=== PATIENT | female | born 1985 | race Asian ===

== ENCOUNTER 2017-10-18 03:00 | Inpatient (IN) | payer BC, OTHER ==
[2017-10-18] MEDS ORDERED: ELECTROLYTE-148 SOLN 1,000 ML IV SCH ×2 (03:35→08:30)
[2017-10-18] MEDS ORDERED: AMPICILLIN - 2 GM in SODIUM CHLORIDE 100 ML IVPB ONE (03:50)
[2017-10-18] MEDS ORDERED: OXYTOCIN 20 UNITS in 0.9% NS 20 UNIT/1,000 ML INFUS.BAG IV ONE ×2 (04:00→09:56)
[2017-10-18] MEDS ORDERED: LIDOCAINE HCL 1% PRESERVATIVE FREE - 30ML VIAL ONE (04:00)
[2017-10-18 04:21] LABS: BASO % 0.1 % (0-2.0); EOS % 0.4 % (0-4.5); HEMATOCRIT 41.2 % (32.4-45.2); HEMOGLOBIN 13.9 GM/dL (10.7-15.3); LYMPH % 20.7 % (8-40); MCH 28.7 pg (25.7-33.7); MCHC 33.8 g/dl (32.0-36.0); MEAN CELL VOLUME 84.8 fl (80-96); MEAN PLT VOLUME 11.5 fl (7.5-11.1); MONO % 8.1 % (3.8-10.2); NEUT % 70.7 % (42.8-82.8); PLATELET COUNT 92 K/MM3 (134-434); RBC 4.86 M/mm3 (3.60-5.2); RDW 14.8 % (11.6-15.6); WHITE BLOOD COUNT 10.8 K/mm3 (4.0-10.0)
[2017-10-18 04:29] VITALS: BMI 29.9
[2017-10-18 04:30] LABS: INR 0.87 (0.83-1.09); PROTHROMBIN TIME (PATIENT) 9.8 SEC (9.7-13.0)
[2017-10-18 04:33] LABS: ACTIVATED PTT 26.9 SECONDS (25.2-36.5)
[2017-10-18 04:41] LABS: ANION GAP 11 MMOL/L (8-16); BLOOD UREA NITROGEN 11 mg/dL (7-18); CALCIUM 8.9 mg/dL (8.5-10.1); CHLORIDE 105 mmol/L (98-107); CO2 22 mmol/L (21-32); CREATININE 0.5 mg/dL (0.55-1.02); GLUCOSE,RANDOM 100 mg/dL (74-106); POTASSIUM 4.3 mmol/L (3.5-5.1); SODIUM 138 mmol/L (136-145)
[2017-10-18] MEDS ORDERED: FENTANYL/BUPIVACAINE/NS/PF - PCEA - 50 ML DISP.SYRIN EP ONE (05:03)
[2017-10-18] MEDS ORDERED: BUPIVACAINE 0.75% IN DEXTROSE/PF 2ML AMPULE NR ONE (05:17)
--- NOTE | 2017-10-18 06:17 | HP ---
Past Medical History - Primary Care Physician PCP:: Celena Mayorga - Admission Chief Complaint: 32yo P1 @ 38.4wks with ctx, no VB, no LOF, +FM History of Present Illness: 1. Rh negative - s/p RhoGam @ 28wks 2. Late transfer of care from [place] 3. GBS neg - Ampicilln for prophylaxis History Source: Patient, Significant Other, Medical Record Limitations to Obtaining History: No Limitations - Past Medical History ...: 2 ...Para: 1 ( 7.11lb) ...Term: 1 ... Weeks Gestation by Dates: 38.4 ...EDC by Dates: 10/28/17 - Past Surgical History Past Surgical History: Yes: None Hx Myomectomy: No Hx Transabdominal Cerclage: No - Smoking History Smoking history: Never smoked Have you smoked in the past 12 months: No - Alcohol/Substance Use Hx Alcohol Use: No History of Substance Use: reports: None - Social History ADL: Independent History of Recent Travel: No Home Medications - Allergies Allergies/Adverse Reactions: Allergies Allergy/AdvReac Type Severity Reaction Status Date / Time No Known Allergies Allergy Verified 11/11/15 09:32 - Home Medications Home Medications: Ambulatory Orders Vit/Iron Fum/Folic AC [ Tablet] 1 each PO DAILY 11/11/15 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 - Maternity Vital Signs: Vital Signs Temperature 97.6 F 10/18/17 03:35 Pulse Rate 59 L 10/18/17 03:35 Respiratory Rate 22 10/18/17 03:35 Blood Pressure 141/72 10/18/17 03:35 O2 Sat by Pulse Oximetry (%) Constitutional: Yes: Well Nourished, No Distress, Calm Eyes: Yes: WNL, Conjunctiva Clear, EOM Intact HENT: Yes: WNL, Atraumatic, Normocephalic Neck: Yes: WNL, Supple, Trachea Midline Cardiovascular: Yes: WNL, Regular Rate and Rhythm Lungs: Clear to auscultation Breast(s): Yes: WNL - Abdominal Exam/OB Fundal Height: 39 (EFW 8lb) Number of Fetuses: Single Presentation: Vertex Contractions: Yes Regularity: Regular Intensity: Moderate Monitor Mode: External Heart Rate (range): 150 Heart Rate Location: Midline Category: I Accelerations: Uniform Decelerations: None - Vaginal Exam/OB Vaginal Bleediing: No Speculum Exam: No Dilatation (cm): FD Effacement (%): 100 Amniotic Membrane Status: Bulging Presentation: Vertex/Position Station: -1 - 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 Musculoskeletal: Yes: WNL Extremities: Yes: WNL Integumentary: Yes: WNL ...Motor Strength: WNL - Labs Lab Results: CBC, BMP 10/18/17 04:05 10/18/17 04:05 Assessment/Plan 32yo P1 @ 38.3 wks in active labor requesting pain relief Patient informed that she can only have Spinal anesthesia at this point and would not be able to push for 1-2hrs She was offered to push right away patient chose to get pain relief via spinal anesthesia GBS positive Ampicillin administered right away MF Status reassuring will monitor progress of labor
[2017-10-18] MEDS: AMPICILLIN - 1 GM in SODIUM CHLORIDE 100 ML IVPB SCH ×2 (07:25→23:05)
[2017-10-18] MEDS ORDERED: AMPICILLIN SODIUM 1 GM VIAL ONE (07:29)
[2017-10-18] MEDS ORDERED: BISACODYL 10 MG SUPP.RECT RC PRN (08:24)
[2017-10-18] MEDS ORDERED: WITCH HAZEL 50% (TUCKS) 40 PAD/JAR PAD TP PRN (08:24)
[2017-10-18] MEDS ORDERED: IBUPROFEN 600 MG TABLET (FP) PO PRN (08:24)
[2017-10-18] MEDS ORDERED: BENZOCAINE 20% 57 GM BOTTLE TP PRN (08:24)
[2017-10-18] MEDS ORDERED: METHYLERGONOVINE MALEATE 0.2 MG/1 ML AMP IM PRN (08:24)
[2017-10-18] MEDS: ACETAMINOPHEN 325 MG TABLET (FP) PO PRN ×3 (08:27→23:22)
[2017-10-18] MEDS ORDERED: D5W-LR W/ 20 UNITS OXYTOCIN 20 UNIT/1,000 ML INFUS.BAG IV SCH (08:30)
[2017-10-18 08:35] LABS: ARTERIAL BLOOD GAS BASE EXCESS -4.8 meq/l (-2-2)
--- NOTE | 2017-10-18 08:35 | PN ---
Delivery - Delivery Vaginal Delivery: No Problems Type of Anesthesia: Spinal Episiotomy/Laceration: Midline, 1st degree EBL (cc): 450 Delivery, Single - Stages of Labor Date 1st Stage Initiatied: 10/18/17 Time 1st Stage Initiated: 01:00 Date 2nd Stage Initiated: 10/18/17 Time 2nd Stage Initiated: 05:05 Date of Delivery: 10/18/17 Time of Delivery: 08:01 Date Placenta Delivered: 10/18/17 Time Placenta Delivered: 08:06 Placenta: Yes: Spontaneous - Condition of Infant Travel Agency Manager/Test Puller Present: No Gender: Male Weight: 9 lb 9 oz Position: Right, OT - 1 Minute Total Score: 9 5 Minutes Total Score: 9 - Feeding Plan Initial Plan: Exclusive throughout hospitalization Remarks - Remarks Remarks: Uncomplicated head and shoulder delivery, cord x 1 around the shoulder reduced without difficulty
[2017-10-18 08:46] LABS: VENOUS PC02 48.9 mmHg (38-52); VENOUS PH 7.31 (7.32-7.42); VENOUS PO2 29.2 mmHg (28-48)
[2017-10-18 08:49] LABS: ARTERIAL BLD GAS O2 SATURATION 39.4 % (90-98.9); ARTERIAL BLOOD GAS PCO2 73.3 mmHg (35-45); ARTERIAL BLOOD GAS PO2 24.1 mmHg (80-100); ARTERIAL BLOOD GAS pH 7.18 (7.35-7.45)
[2017-10-18] MEDS: PRENATAL VITAMINS W/ FOLIC ACID TABLET (FP) PO SCH (10:44)
[2017-10-18] MEDS: FERROUS SO4 325 MG TABLET (FP) PO SCH ×2 (10:44→18:00)
[2017-10-18] MEDS ORDERED: TUBERCULIN PPD 5 TU/0.1ML SYRINGE (IN PATIENT USE ONLY) ID ONE (12:30)
[2017-10-18] MEDS: BENZOCAINE 28 GM HEMORRHOIDAL OINTMENT TP PRN (20:41)
[2017-10-19 08:22] LABS: BASO % 0.2 % (0-2.0); EOS % 0.5 % (0-4.5); HEMATOCRIT 36.8 % (32.4-45.2); HEMOGLOBIN 12.1 GM/dL (10.7-15.3); LYMPH % 22.8 % (8-40); MCHC 32.9 g/dl (32.0-36.0); MEAN CELL VOLUME 85.4 fl (80-96); MEAN PLT VOLUME 11.8 fl (7.5-11.1); MONO % 6.4 % (3.8-10.2); NEUT % 70.1 % (42.8-82.8); PLATELET COUNT 90 K/MM3 (134-434); RBC 4.31 M/mm3 (3.60-5.2); RDW 15.2 % (11.6-15.6); WHITE BLOOD COUNT 11.1 K/mm3 (4.0-10.0)
[2017-10-19] MEDS: PRENATAL VITAMINS W/ FOLIC ACID TABLET (FP) PO SCH (09:03)
[2017-10-19] MEDS: FERROUS SO4 325 MG TABLET (FP) PO SCH ×2 (09:03→18:36)
[2017-10-19] MEDS ORDERED: DIPHTH,PERTUSS(ACELL),TET 0.5 ML DISP.SYRIN IM ONE (10:00)
--- NOTE | 2017-10-19 10:39 | PN ---
Post Progress Note - Subjective Subjective: No complains, ambulating, Breast feeding Post Day: 1 Type of Delivery: Vital Signs: Vital Signs Temperature 98.2 F 10/19/17 09:00 Pulse Rate 89 10/19/17 09:00 Respiratory Rate 20 10/19/17 09:00 Blood Pressure 125/78 10/19/17 09:00 O2 Sat by Pulse Oximetry (%) 96 10/18/17 09:30 Breast Exam: Yes: Soft Uterus: Yes: Fundus Firm Abdomen/GI: Yes: Abdomen soft Lochia: Yes: Rubra Lochia, amount: Small Extremities: Yes: Calves non-tender Perineum: Yes: Laceration Activity: Ambulating - Labs Labs: CBC WBC 11.1 K/mm3 (4.0-10.0) H 10/19/17 07:45 RBC 4.31 M/mm3 (3.60-5.2) 10/19/17 07:45 Hgb 12.1 GM/dL (10.7-15.3) 10/19/17 07:45 Hct 36.8 % (32.4-45.2) 10/19/17 07:45 MCV 85.4 fl (80-96) 10/19/17 07:45 MCH 28.0 pg (25.7-33.7) 10/19/17 07:45 MCHC 32.9 g/dl (32.0-36.0) 10/19/17 07:45 RDW 15.2 % (11.6-15.6) 10/19/17 07:45 Plt Count 90 K/MM3 (134-434) L 10/19/17 07:45 MPV 11.8 fl (7.5-11.1) H 10/19/17 07:45 Absolute Neuts (auto) 7.8 K/mm3 (1.5-8.0) 10/19/17 07:45 Neutrophils % 70.1 % (42.8-82.8) 10/19/17 07:45 Lymphocytes % 22.8 % (8-40) 10/19/17 07:45 Monocytes % 6.4 % (3.8-10.2) 10/19/17 07:45 Eosinophils % 0.5 % (0-4.5) 10/19/17 07:45 Basophils % 0.2 % (0-2.0) 10/19/17 07:45 Nucleated RBC % 0 % (0-0) 10/19/17 07:45 Assessment/Plan 32yo P2 s/p Doing well VSS, Afebrile Rh negative, received RhoGam Baby boy not for circumcision Plan d/c in am NPV x 6wks RTO 4-6 wks
[2017-10-19] MEDS: BENZOCAINE 28 GM HEMORRHOIDAL OINTMENT TP PRN (21:31)
[2017-10-19] MEDS ORDERED: SENNOSIDES/DOCUSATE COMBO (SENNA PLUS) TABLET (UD) PO PRN (22:00)
[2017-10-20] MEDS: FERROUS SO4 325 MG TABLET (FP) PO SCH (08:02)
[2017-10-20] MEDS: PRENATAL VITAMINS W/ FOLIC ACID TABLET (FP) PO SCH (09:47)
--- NOTE | 2017-10-20 11:04 | DS ---
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-S3B MULTI SENSOR OPERATOR Vital Signs: Vital Signs Temperature 98.8 F 10/19/17 22:00 Pulse Rate 83 10/19/17 22:00 Respiratory Rate 18 10/19/17 22:00 Blood Pressure 119/79 10/19/17 22:00 O2 Sat by Pulse Oximetry (%) 96 10/18/17 09:30 Constitutional: Yes: Well Nourished, No Distress, Calm Eyes: Yes: WNL, Conjunctiva Clear, EOM Intact HENT: Yes: WNL, Atraumatic, Normocephalic Neck: Yes: WNL, Supple, Trachea Midline Cardiovascular: Yes: WNL, Regular Rate and Rhythm Respiratory: Yes: WNL, Regular, CTA Bilaterally Gastrointestinal: Yes: WNL, Normal Bowel Sounds, Soft ...Rectal Exam: Yes: WNL Renal/: Yes: WNL Pelvis: Yes: WNL External Genitalia: Yes: Normal Vaginal Exam: Yes: Normal Cervix: Yes: Normal Uterus: Yes: Normal ....Post : Yes: Uterus firm, Uterus non-tender Breast(s): Yes: WNL Musculoskeletal: Yes: WNL Extremities: Yes: WNL Edema: No Integumentary: Yes: WNL Wound/Incision: Yes: Well Approximated Neurological: Yes: WNL, Alert, Oriented ...Motor Strength: WNL Psychiatric: Yes: WNL, Alert, Oriented Labs: CBC, BMP 10/19/17 07:45 10/18/17 04:05 Delivery - Delivery Vaginal Delivery: No Problems Type of Anesthesia: Spinal Episiotomy/Laceration: Midline, 1st degree EBL (cc): 450 Delivery, Single - Stages of Labor Date 1st Stage Initiatied: 10/18/17 Time 1st Stage Initiated: 01:00 Date 2nd Stage Initiated: 10/18/17 Time 2nd Stage Initiated: 05:05 Date of Delivery: 10/18/17 Time of Delivery: 08:01 Time Placenta Delivered: 08:06 Placenta: Yes: Spontaneous - Condition of Infant Reservationist/Language Translator Present: [place]: Jarrett Carbajal Infant Gender: Male Weight: 9 lb 9 oz Position: Right, OT Total Hours ROM (Hrs/Mins): 2hr/50min - 1 Minute Total Score: 9 5 Minutes Total Score: 9 - Feeding Plan Initial Plan: Exclusive throughout hospitalization Discharge Summary Reason For Visit: LABOR ADMIT Procedures: Principal: Normal vaginal delivery Hospital Course: Unremarkable Condition: Good - Instructions Diet, Activity, Other Instructions: Physical activity Resume your normal everyday activity as tolerated no heavy lifting or exercise until seen by your surgeon. You may walk unlimited cayla of and climb stairs. You may resume driving the car when you feel safe and comfortable behind the wheel. No sexual activity as instructed. Wound care If you have a bandage, leave it on, and keep dry for 48-72 hours. After that time discard the outer bandage. If they are tapes on the skin under the out of bandage leave them in place. They will peel off in the next 7 to 10 days. Do Not Peel them off. You may shower the day after surgery. If there are tapes present on the skin, you may shower over them. Diet There are no dietary restrictions. Eat healthy, high-fiber foods. Drink 6 to 8 glasses of liquid each day. This will assist in keeping your bowels are regular. Pain management You may take Tylenol or acetaminophen or Ibuprofen (for example, Motrin, Advil etc.) from my pain prescription medication is ordered should be taken as prescribed for moderate to severe pain. Call MD for any of the following: Severe pain not relieved by medication Fever of 101 or higher Excessive bleeding or drainage on dressing Inability to urinate Disposition: HOME - Home Medications Comprehensive Discharge Medication List: Ambulatory Orders Vit/Iron Fum/Folic AC [ Tablet] 1 each PO DAILY 11/11/15
[2017-10-20 14:54] VITALS: BP 97/58; PULSE 91; TEMP 97.6
== END 2017-10-20 14:30 | disposition home or self-care (01) | DRG 560 ==
LOC: JDEL 03:00 → JLDR 03:35 → J3W 10:10
PROVIDERS: ADMIT Obstetrics & Gynecology; ATTEND Obstetrics & Gynecology
PROC: 10E0XZZ Delivery of Products of Conception, External Approach (ICD-10-PCS; principal; 2017-10-18)
PROC: 0HQ9XZZ Repair Perineum Skin, External Approach (ICD-10-PCS; 2017-10-18)
PROC: 0W8NXZZ Division of Female Perineum, External Approach (ICD-10-PCS; 2017-10-18)
PROC: 3E0334Z Introduction of Serum, Toxoid and Vaccine into Peripheral Vein, Percutaneous Approach (ICD-10-PCS; 2017-10-18)
DX: O70.0 First degree perineal laceration during delivery (principal); O26.893 Other specified pregnancy related conditions, third trimester; Z67.91 Unspecified blood type, Rh negative; Z3A.38 38 weeks gestation of pregnancy; Z22.330 Carrier of Group B streptococcus; Z37.0 Single live birth
CPT/HCPCS: 36415; 36600; 59025; 59409; 80048; 82803; 85025; 85461; 85610; 85730; 86593; 86850; 86900; 86901; 86999; 87389; 90715

== ENCOUNTER 2019-02-05 16:20 | Inpatient (IN) | payer OTHER ==
[2019-02-05] MEDS ORDERED: AMPICILLIN - 2 GM in SODIUM CHLORIDE 100 ML IVPB ONE (16:30)
[2019-02-05] MEDS ORDERED: ELECTROLYTE-148 SOLN 1,000 ML IV SCH (16:30)
[2019-02-05] MEDS ORDERED: AMPICILLIN SODIUM 2 GM VIAL ONE (16:40)
[2019-02-05 16:50] VITALS: BMI 28.1
[2019-02-05] MEDS ORDERED: OXYTOCIN 20 UNITS in 0.9% NS 20 UNIT/1,000 ML INFUS.BAG IV ONE (17:03)
[2019-02-05] MEDS ORDERED: LIDOCAINE HCL 1% PRESERVATIVE FREE - 30ML VIAL ONE (17:06)
[2019-02-05 17:12] LABS: BASO % 0.1 % (0-2.0); EOS % 0.1 % (0-4.5); LYMPH % 22.3 % (8-40); MCH 28.5 pg (25.7-33.7); MEAN CELL VOLUME 83.8 fl (80-96); MEAN PLT VOLUME 11.4 fl (7.5-11.1); MONO % 8.9 % (3.8-10.2); NEUT % 68.6 % (42.8-82.8); PLATELET COUNT 109 K/MM3 (134-434); RDW 15.8 % (11.6-15.6); WHITE BLOOD COUNT 8.2 K/mm3 (4.0-10.0)
--- NOTE | 2019-02-05 17:44 | HP ---
Past Medical History - Primary Care Physician PCP:: Rey Eldridge - Admission Chief Complaint: 33yo P2 with at EGA 39w0d admitted with spont labor. History of Present Illness: Pt presented to L&D and progressed quickly to . complicated by: GBS pos vaginal cx Mildly decreased platelet count. 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: No: Alzheimer's, CVA, Dementia, Migraine, Multiple Sclerosis, Peripheral Neuropathy, Parkinson's, Seizure, Syncope, TIA, Vertigo, Other Cardiovascular: No: AFIB, Aneurysm, Aortic Insufficiency, Aortic Stenosis, CAD, CHF, Deep Vein Thrombosis, HTN, Hyperlipdemia, [place], Mitral Insufficiency, Mitral Stenosis, Murmur, Pulmonary Hypertension, Other Pulmonary: No: Asthma, Bronchitis, Cancer, COPD, O2 Dependent, Pneumonia, Previously Intubated, Pulmonary Embolus, Pulmonary Fibrosis, Sleep Apnea, Other Gastrointestinal: No: Ascites, Cancer, Constipation, Crohn's Disease, Diverticulitis, Diverticulosis, Esophageal Varices, Gastritis, GERD, GI Bleed, Hemorrhoids, Hiatal Hernia, Inflamatory Bowel Disease, Irritable Bowel Disease, Pancreatitis, Peptic Ulcer Disease, Ulcerative Colitis, Other Hepatobiliary: No: Cirrhosis, Cholelithiasis, Cholecystitis, Choledocholithiasis , Hepatitis A, Hepatitis B, Hepatitis C, Other Renal/: No: Renal Failure, Renal Inusuff, BPH, Cancer, Hematuria, Hemodialysis , Neurogenic Bladder, Renal Calculi, UTI, Other Reproductive: No: Ectopic , Endometriosis, Fibroids, PID, Polycystic Ovary Syndrome, Postmenopausal, Other ...: 3 ...Para: 2 ...Term: 2 ... Weeks Gestation by Dates: 39 ...EDC by Sono: 02/12/19 Heme/Onc: No: Anemia, B12 Deficiency, Bleeding Disorder, Cancer, Current Chemotherapy, Current Radiation Therapy, Hemochromatosis, Hypercoaguable State, Myeloproliferative Synd, Sickle Cell Disease, Sickle Cell Trait, Thrombocytopenia, Other Infectious Disease: No: AIDS, C-Diff, Herpes Zoster, HIV, MRSA, STD's, Tuberculosis, VREF, Other Psych: No: Addictions, Anxiety, Bipolar, Depression, Panic, Psychosis, Schizophrenia, Other Musculoskeletal: No: Bursitis, Chronic low back pain, Hemiparesis, Hemiplegia, Osteoarthritis, Paraplegia, Other Rheumatology: No: Fibromyalgia, Gout, Lupus, Rheumatoid Arthritis, Sarcoidosis, Vasculitis, Other ENT: No: Allergic Rhinitis, Sinusitis, Other Endocrine: No: Camden's Disease, Leon's Disease, Diabetes Insipidus, Diabetes Mellitus, Hyperparathyroidism, Hyperthyroidism, Hypothyroidism, Osteopenia, SIADH, Other Dermatology: No: Basal Cell, Cellulitis, Eczema, Melanoma, Psoriasis, Squamous Cell, Other - Past Surgical History Past Surgical History: Yes: None Hx Myomectomy: No Hx Transabdominal Cerclage: No - Smoking History Smoking history: Never smoked Have you smoked in the past 12 months: No - Alcohol/Substance Use Hx Alcohol Use: No History of Substance Use: reports: None - Social History Usual Living Arrangement: Yes: With Spouse, With Child Do you think of yourself as: Straight/Heterosexual ADL: Independent History of Recent Travel: No Home Medications - Allergies Allergies/Adverse Reactions: Allergies Allergy/AdvReac Type Severity Reaction Status Date / Time No Known Allergies Allergy Verified 02/05/19 16:53 - Home Medications Home Medications: Ambulatory Orders Vit/Iron Fum/Folic AC [ Tablet] 1 each PO DAILY 11/11/15 Family Medical History Family History: Unremarkable Review of Systems - Review of Systems Constitutional: reports: Other (Active labor) Eyes: reports: No Symptoms HENT: reports: No Symptoms Neck: reports: No Symptoms Cardiovascular: reports: No Symptoms Respiratory: reports: No Symptoms Gastrointestinal: reports: No Symptoms Genitourinary: reports: Other (SROM) Breasts: reports: No Symptoms Reported Musculoskeletal: reports: No Symptoms Integumentary: reports: No Symptoms Neurological: reports: No Symptoms Endocrine: reports: No Symptoms Hematology/Lymphatic: reports: No Symptoms Psychiatric: reports: No Symptoms 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 - Maternity Vital Signs: Vital Signs Temperature 98.1 F 02/05/19 16:43 Pulse Rate 90 02/05/19 16:43 Respiratory Rate 20 02/05/19 16:43 Blood Pressure 138/48 L 02/05/19 16:43 O2 Sat by Pulse Oximetry (%) Constitutional: Yes: Well Nourished, Other (active labor and contractions) Eyes: Yes: WNL, Conjunctiva Clear, EOM Intact HENT: Yes: WNL, Atraumatic, Normocephalic Neck: Yes: WNL, Supple, Trachea Midline Cardiovascular: Yes: WNL, Regular Rate and Rhythm Lungs: Clear to auscultation, Normal air movement - Abdominal Exam/OB Fundal Height: 39 Number of Fetuses: Single Presentation: Vertex Contractions: Yes - Vaginal Exam/OB Vaginal Bleediing: No Speculum Exam: No Dilatation (cm): 10 Effacement (%): 100 Amniotic Fluid: Yes: Clear Presentation: Vertex/Position - 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 Musculoskeletal: Yes: WNL Extremities: Yes: WNL Edema: No Integumentary: Yes: WNL Deep Tendon Reflex Grade: Normal +2 ...Motor Strength: WNL Psychiatric: Yes: WNL, Alert, Oriented - Labs Lab Results: CBC, BMP 02/05/19 16:30 Hemorrhage Risk Assessment - Risk Factors Medium Risk Factors: Yes: None High Risk Factors: Yes: None Risk Score: 1 Risk Level: Medium Risk Assessment/Plan 33yo P2 with at EGA 39w0d admitted with spont labor. Pt had SROM on admission and progressed quickly to . A live baby boy was delivered w/o complications over 2nd degree perineal laceration. 9-9 EBL 350ml
[2019-02-05] MEDS ORDERED: OXYTOCIN 20 UNITS in 0.9% NS 20 UNIT/1,000 ML INFUS.BAG IV SCH (17:45)
[2019-02-05] MEDS: ACETAMINOPHEN 325 MG TABLET (FP) PO PRN (17:45)
[2019-02-05] MEDS ORDERED: BISACODYL 10 MG SUPP.RECT RC PRN (17:45)
[2019-02-05] MEDS: IBUPROFEN 600 MG TABLET (FP) PO PRN (17:45)
[2019-02-05] MEDS ORDERED: BENZOCAINE 28 GM HEMORRHOIDAL OINTMENT TP PRN (17:45)
[2019-02-05] MEDS ORDERED: METHYLERGONOVINE MALEATE 0.2 MG/1 ML AMP IM PRN (17:45)
[2019-02-05 17:54] LABS: BLOOD UREA NITROGEN 11.6 mg/dL (7-18); CREATININE 0.7 mg/dL (0.55-1.3); POTASSIUM 4.3 mmol/L (3.5-5.1)
--- NOTE | 2019-02-05 17:56 | PN ---
Delivery - Delivery Vaginal Delivery: No Problems, Spontaneous Type of Anesthesia: Local Episiotomy/Laceration: Midline (Laceration), 2nd degree EBL (cc): 350 Delivery, Single - Stages of Labor Date 1st Stage Initiatied: 02/05/19 Time 1st Stage Initiated: 13:00 Date 2nd Stage Initiated: 02/05/19 Time 2nd Stage Initiated: 17:05 Date of Delivery: 02/05/19 Time of Delivery: 17:15 Time Placenta Delivered: 17:25 Placenta: Yes: Spontaneous, Normal Configuration - Condition of Infant Community Health Nurse/Trim Die Maker Present: No Gender: Male Position: Left, OA Total Hours ROM (Hrs/Mins): 1h15m - 1 Minute Total Score: 9 5 Minutes Total Score: 9 - Feeding Plan Initial Plan: Elected not to breastfeed exclusively throughout hospitalization Benefits of Exclusively reinforced: Yes Remarks - Remarks Remarks: Uncomplicated .
[2019-02-05 18:59] LABS: INR 0.85 (0.83-1.09)
[2019-02-05 19:01] LABS: ACTIVATED PTT 27.8 SECONDS (25.2-36.5)
[2019-02-06] MEDS: ACETAMINOPHEN 325 MG TABLET (FP) PO PRN (00:55)
[2019-02-06] MEDS: IBUPROFEN 600 MG TABLET (FP) PO PRN (00:56)
[2019-02-06] MEDS: BENZOCAINE 20% 57 GM BOTTLE TP PRN (00:57)
[2019-02-06] MEDS: WITCH HAZEL 50% (TUCKS) 40 PAD/JAR PAD TP PRN (00:57)
[2019-02-06 07:21] LABS: BASO % 0.2 % (0-2.0); EOS % 0.4 % (0-4.5); HEMATOCRIT 36.3 % (32.4-45.2); LYMPH % 21.1 % (8-40); MCHC 33.2 g/dl (32.0-36.0); MEAN CELL VOLUME 84.6 fl (80-96); MEAN PLT VOLUME 11.3 fl (7.5-11.1); MONO % 6.9 % (3.8-10.2); NEUT % 71.4 % (42.8-82.8); PLATELET COUNT 99 K/MM3 (134-434); RBC 4.29 M/mm3 (3.60-5.2); RDW 15.8 % (11.6-15.6); WHITE BLOOD COUNT 9.6 K/mm3 (4.0-10.0)
[2019-02-06] MEDS: PRENATAL VITAMINS W/ FOLIC ACID TABLET (FP) PO SCH (10:29)
--- NOTE | 2019-02-06 12:00 | PN ---
Post Progress Note - Subjective Subjective: Patient without acute complaints. Reports tolerating oral intake without nausea or vomiting. Ambulating without dizziness. Denies fevers or chills. Pain well controlled with oral pain medication. Pumping/breast feeding without issue. Passing flatus. Post Day: 1 Type of Delivery: Vital Signs: Vital Signs Temperature 98.7 F 02/06/19 05:56 Pulse Rate 78 02/06/19 05:56 Respiratory Rate 18 02/06/19 05:56 Blood Pressure 123/76 02/06/19 05:56 O2 Sat by Pulse Oximetry (%) Breast Exam: Yes: Soft Uterus: Yes: Fundus Firm, Fundus below umbilicus, Non-tender Abdomen/GI: Yes: Abdomen soft, Passing flatus, Tolerating PO Lochia: Yes: Rubra Lochia, amount: Small Extremities: Yes: Calves non-tender Perineum: Yes: Intact Activity: Ambulating - Labs Labs: CBC WBC 9.6 K/mm3 (4.0-10.0) 02/06/19 06:40 RBC 4.29 M/mm3 (3.60-5.2) 02/06/19 06:40 Hgb 12.0 GM/dL (10.7-15.3) 02/06/19 06:40 Hct 36.3 % (32.4-45.2) 02/06/19 06:40 MCV 84.6 fl (80-96) 02/06/19 06:40 MCH 28.0 pg (25.7-33.7) 02/06/19 06:40 MCHC 33.2 g/dl (32.0-36.0) 02/06/19 06:40 RDW 15.8 % (11.6-15.6) H 02/06/19 06:40 Plt Count 99 K/MM3 (134-434) L 02/06/19 06:40 MPV 11.3 fl (7.5-11.1) H 02/06/19 06:40 Absolute Neuts (auto) 6.9 K/mm3 (1.5-8.0) 02/06/19 06:40 Neutrophils % 71.4 % (42.8-82.8) 02/06/19 06:40 Lymphocytes % 21.1 % (8-40) 02/06/19 06:40 Monocytes % 6.9 % (3.8-10.2) 02/06/19 06:40 Eosinophils % 0.4 % (0-4.5) D 02/06/19 06:40 Basophils % 0.2 % (0-2.0) 02/06/19 06:40 Nucleated RBC % 0 % (0-0) 02/06/19 06:40 Assessment/Plan 33yo P3 s/p , doing well stable, afebrile. Asymptomatic for anemia. care instructions reviewed. Continue routine care. Ambulation encouraged Discharge instruction reviewed.
--- NOTE | 2019-02-06 12:25 | DS ---
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-NBA PLAYER Vital Signs: Vital Signs Temperature 98.7 F 02/06/19 05:56 Pulse Rate 78 02/06/19 05:56 Respiratory Rate 18 02/06/19 05:56 Blood Pressure 123/76 02/06/19 05:56 O2 Sat by Pulse Oximetry (%) Constitutional: Yes: Well Nourished, No Distress, Calm Eyes: Yes: WNL, Conjunctiva Clear HENT: Yes: WNL, Atraumatic, Normocephalic Neck: Yes: WNL, Supple, Trachea Midline Cardiovascular: Yes: WNL, Regular Rate and Rhythm Respiratory: Yes: WNL, Regular, CTA Bilaterally Gastrointestinal: Yes: WNL, Normal Bowel Sounds, Soft ...Rectal Exam: Yes: Deferred Renal/: Yes: WNL ....Post : Yes: Uterus firm, Uterus non-tender, Slight lochia rubra Breast(s): Yes: WNL Musculoskeletal: Yes: WNL Extremities: Yes: WNL Edema: Yes Edema: LLE: Trace, RLE: Trace Integumentary: Yes: WNL Neurological: Yes: WNL, Alert, Oriented ...Motor Strength: WNL Psychiatric: Yes: WNL, Alert, Oriented Labs: CBC, BMP 02/06/19 06:40 02/05/19 16:30 Delivery - Delivery Vaginal Delivery: No Problems, Spontaneous Type of Anesthesia: Local Episiotomy/Laceration: Midline, 2nd degree EBL (cc): 350 Delivery, Single - Stages of Labor Date 1st Stage Initiatied: 02/05/19 Time 1st Stage Initiated: 13:00 Date 2nd Stage Initiated: 02/05/19 Time 2nd Stage Initiated: 17:05 Date of Delivery: 02/05/19 Time of Delivery: 17:15 Date Placenta Delivered: 02/05/19 Time Placenta Delivered: 17:25 Placenta: Yes: Spontaneous, Normal Configuration - Condition of Infant Teletype Telegrapher/Rope Rider Present: No Gender: Male Weight: 3.912 kg Position: Left, OA Total Hours ROM (Hrs/Mins): 1h15m - 1 Minute Total Score: 9 5 Minutes Total Score: 9 - Feeding Plan Initial Plan: Elected not to breastfeed exclusively throughout hospitalization Benefits of Exclusively reinforced: Yes Remarks - Remarks Remarks: Uncomplicated . Discharge Summary Problems reviewed: Yes Reason For Visit: IN LABOR Labor at term Procedures: Principal: Hospital Course: Normal labor, delivery, recovery Condition: Good - Instructions Diet, Activity, Other Instructions: Physical activity Resume your normal everyday activity as tolerated no heavy lifting or exercise until seen by your surgeon. You may walk unlimited cayla of and climb stairs. You may resume driving the car when you feel safe and comfortable behind the wheel. No sexual activity as instructed. Wound care If you have a bandage, leave it on, and keep dry for 48-72 hours. After that time discard the outer bandage. If they are tapes on the skin under the out of bandage leave them in place. They will peel off in the next 7 to 10 days. Do Not Peel them off. You may shower the day after surgery. If there are tapes present on the skin, you may shower over them. Diet There are no dietary restrictions. Eat healthy, high-fiber foods. Drink 6 to 8 glasses of liquid each day. This will assist in keeping your bowels are regular. Pain management You may take Tylenol or acetaminophen or Ibuprofen (for example, Motrin, Advil etc.) from my pain prescription medication is ordered should be taken as prescribed for moderate to severe pain. Call MD for any of the following: Severe pain not relieved by medication Fever of 101 or higher Excessive bleeding or drainage on dressing Inability to urinate Referrals: Rey Eldridge MD [Staff Physician] - Disposition: HOME - Home Medications Comprehensive Discharge Medication List: Ambulatory Orders Vit/Iron Fum/Folic AC [ Tablet] 1 each PO DAILY 11/11/15 Prescription Drug Monitoring Program (I-STOP) results: I-STOP not reviewed
[2019-02-06] MEDS ORDERED: SENNOSIDES/DOCUSATE COMBO (SENNA PLUS) TABLET (UD) PO PRN (22:00)
[2019-02-07] MEDS: WITCH HAZEL 50% (TUCKS) 40 PAD/JAR PAD TP PRN (10:30)
[2019-02-07] MEDS: BENZOCAINE 20% 57 GM BOTTLE TP PRN (10:30)
[2019-02-07 10:39] VITALS: BP 115/67; PULSE 83; TEMP 98.2
[2019-02-07] MEDS: PRENATAL VITAMINS W/ FOLIC ACID TABLET (FP) PO SCH (11:07)
== END 2019-02-07 13:35 | disposition home or self-care (01) | DRG 560 ==
LOC: JLDR 16:20 → J3W 20:11
PROVIDERS: ADMIT Obstetrics & Gynecology; ATTEND Obstetrics & Gynecology
PROC: 10E0XZZ Delivery of Products of Conception, External Approach (ICD-10-PCS; principal; 2019-02-05)
PROC: 0KQM0ZZ Repair Perineum Muscle, Open Approach (ICD-10-PCS; 2019-02-05)
PROC: 0W8NXZZ Division of Female Perineum, External Approach (ICD-10-PCS; 2019-02-05)
DX: O70.1 Second degree perineal laceration during delivery (principal); Z3A.39 39 weeks gestation of pregnancy; Z22.330 Carrier of Group B streptococcus; Z37.0 Single live birth
CPT/HCPCS: 36415; 59409; 80048; 85025; 85461; 85610; 85730; 86593; 86850; 86900; 86901

== ENCOUNTER 2021-06-21 06:45 | Inpatient (IN) | payer OTHER ==
[2021-06-21] MEDS ORDERED: DEXTROSE 5%-LACTATED RINGERS 1,000 ML IV SCH (07:45)
[2021-06-21] MEDS ORDERED: BUTORPHANOL TARTRATE 1 MG/ML VIAL IVPUSH PRN (07:46)
[2021-06-21] MEDS ORDERED: PROMETHAZINE HCL 25 MG/1 ML VIAL IVPUSH ONE (07:46)
[2021-06-21] MEDS ORDERED: OXYTOCIN 30 UNITS in 0.9% NS 30 UNIT/500 ML INFUS.BAG IVPB SCH (08:00)
[2021-06-21 08:28] VITALS: BMI 27.3
[2021-06-21 08:53] LABS: INR 0.97 (0.83-1.09); PROTHROMBIN TIME (PATIENT) 11.2 SEC (9.7-13.0)
[2021-06-21 08:56] LABS: ACTIVATED PTT 26.4 SECONDS (25.2-36.5)
[2021-06-21 09:00] LABS: BASO % 0.2 % (0-2.0); EOS % 0.3 % (0-4.5); HEMATOCRIT 39.8 % (32.4-45.2); HEMOGLOBIN 13.3 GM/dL (10.7-15.3); LYMPH % 22.8 % (8-40); MCH 28.3 pg (25.7-33.7); MCHC 33.5 g/dl (32.0-36.0); MEAN CELL VOLUME 84.6 fl (80-96); MEAN PLT VOLUME 10.6 fl (7.5-11.1); MONO % 7.6 % (3.8-10.2); NEUT % 69.1 % (42.8-82.8); PLATELET COUNT 115 10^3/uL (134-434); RDW 14.7 % (11.6-15.6); WHITE BLOOD COUNT 8.9 K/mm3 (4.0-10.0)
[2021-06-21 09:07] LABS: BLOOD UREA NITROGEN 6.1 mg/dL (7-18); CALCIUM 8.7 mg/dL (8.5-10.1)
[2021-06-21 09:11] LABS: CREATININE 0.4 mg/dL (0.55-1.3)
[2021-06-21] MEDS ORDERED: OXYTOCIN 30 UNITS in 0.9% NS 30 UNIT/500 ML INFUS.BAG IVPB ONE (09:15)
[2021-06-21] MEDS ORDERED: ELECTROLYTE-148 SOLN 500 ML IV SCH (10:30)
[2021-06-21] MEDS ORDERED: FENTANYL/BUPIVACAINE/NS/PF - PCEA - 50 ML DISP.SYRIN EP ONE ×2 (10:39→15:25)
[2021-06-21] MEDS: FENTANYL/BUPIVACAINE/NS/PF - PCEA - 50 ML DISP.SYRIN EP SCH ×2 (10:55→15:30)
[2021-06-21] MEDS ORDERED: NALOXONE HCL 0.4 MG/ML VIAL IVPUSH PRN (11:30)
[2021-06-21] MEDS: ELECTROLYTE-148 SOLN 500 ML IV SCH ×2 (11:52→14:58)
[2021-06-21] MEDS ORDERED: OXYTOCIN 20 UNITS in 0.9% NS 20 UNIT/1,000 ML INFUS.BAG IV ONE (16:02)
[2021-06-21] MEDS ORDERED: BISACODYL 10 MG SUPP.RECT RC PRN (16:24)
[2021-06-21] MEDS ORDERED: oxyCODONE HCL 5 MG TABLET PO PRN (16:24)
[2021-06-21] MEDS ORDERED: IBUPROFEN 600 MG TABLET (FP) PO PRN (16:24)
[2021-06-21] MEDS ORDERED: METHYLERGONOVINE MALEATE 0.2 MG/1 ML AMP IM PRN (16:24)
[2021-06-21] MEDS ORDERED: BENZOCAINE 20% 57 GM BOTTLE TP PRN (16:24)
[2021-06-21] MEDS ORDERED: WITCH HAZEL 50% (TUCKS) 40 PAD/JAR PAD TP PRN (16:24)
[2021-06-21] MEDS ORDERED: BENZOCAINE 28 GM HEMORRHOIDAL OINTMENT TP PRN (16:24)
[2021-06-21] MEDS ORDERED: ACETAMINOPHEN 325 MG TABLET (FP) PO PRN (16:24)
[2021-06-21] MEDS ORDERED: OXYTOCIN 20 UNITS in 0.9% NS 20 UNIT/1,000 ML INFUS.BAG IV SCH (16:30)
[2021-06-21 17:19] LABS: CORD BASE EXCESS -3.2 mmol/L (0-2); CORD BASE EXCESS -3.6 mmol/L (0-2); CORD HCO3 22.7 mmHg (20-29); CORD HCO3 24.2 mmHg (20-29); CORD PCO2 43.6 mmHg (30-78); CORD PCO2 55.2 mmHg (30-78); CORD pH 7.259 (7.14-7.44); CORD pH 7.334 (7.14-7.44)
[2021-06-22 07:57] LABS: BASO % 0.2 % (0-2.0); EOS % 0.4 % (0-4.5); HEMATOCRIT 36.4 % (32.4-45.2); HEMOGLOBIN 12.3 GM/dL (10.7-15.3); LYMPH % 17.7 % (8-40); MCH 28.8 pg (25.7-33.7); MCHC 33.8 g/dl (32.0-36.0); MEAN CELL VOLUME 85.1 fl (80-96); MEAN PLT VOLUME 10.7 fl (7.5-11.1); NEUT % 73.7 % (42.8-82.8); PLATELET COUNT 112 10^3/uL (134-434); RBC 4.27 M/mm3 (3.60-5.2); RDW 14.7 % (11.6-15.6); WHITE BLOOD COUNT 10.3 K/mm3 (4.0-10.0)
[2021-06-22] MEDS ORDERED: SENNOSIDES/DOCUSATE COMBO (SENNA PLUS) TABLET (UD) PO PRN (22:00)
[2021-06-23 08:40] VITALS: BP 111/72; PULSE 80; TEMP 98.5
== END 2021-06-23 13:40 | disposition home or self-care (01) | DRG 560 ==
LOC: JLDR 06:45 → J3W 17:50
PROVIDERS: ADMIT Obstetrics & Gynecology; ATTEND Obstetrics & Gynecology
PROC: 10E0XZZ Delivery of Products of Conception, External Approach (ICD-10-PCS; principal; 2021-06-21)
PROC: 10907ZC Drainage of Amniotic Fluid, Therapeutic from Products of Conception, Via Natural or Artificial Opening (ICD-10-PCS; 2021-06-21)
PROC: 3E033VJ Introduction of Other Hormone into Peripheral Vein, Percutaneous Approach (ICD-10-PCS; 2021-06-21)
DX: O70.0 First degree perineal laceration during delivery (principal); Z3A.40 40 weeks gestation of pregnancy; Z37.0 Single live birth
CPT/HCPCS: 36415; 36600; 59409; 80048; 82803; 85025; 85610; 85730; 86780; 86850; 86880; 86900; 86901; C9803-CS; U0003; U0005

== ENCOUNTER 2023-04-15 03:50 | Inpatient (IN) | payer OTHER ==
[2023-04-15] MEDS ORDERED: OXYTOCIN 20 UNITS in 0.9% NS 20 UNIT/1,000 ML INFUS.BAG IV ONE (04:24)
[2023-04-15] MEDS ORDERED: OXYTOCIN 10 UNITS/ML VIAL ONE (04:25)
[2023-04-15] MEDS: OXYTOCIN 10 UNITS/ML VIAL IM ONE (04:28)
[2023-04-15] MEDS ORDERED: BISACODYL 10 MG SUPP.RECT RC PRN (04:38)
[2023-04-15] MEDS ORDERED: BENZOCAINE 28 GM HEMORRHOIDAL OINTMENT TP PRN (04:38)
[2023-04-15] MEDS ORDERED: WITCH HAZEL 50% (TUCKS) 40 PAD/JAR PAD TP PRN (04:38)
[2023-04-15] MEDS ORDERED: IBUPROFEN 600 MG TABLET (FP) PO PRN (04:38)
[2023-04-15] MEDS ORDERED: oxyCODONE HCL 5 MG TABLET PO PRN (04:38)
[2023-04-15] MEDS ORDERED: BENZOCAINE 20% 57 GM BOTTLE TP PRN (04:38)
[2023-04-15] MEDS: OXYTOCIN 20 UNITS in 0.9% NS 20 UNIT/1,000 ML INFUS.BAG IV SCH (04:45)
[2023-04-15 05:17] VITALS: BMI 27.1
[2023-04-15 05:43] LABS: BASO % 0.2 % (0-2.0); EOS % 0.5 % (0-4.5); HEMATOCRIT 41.8 % (32.4-45.2); HEMOGLOBIN 13.9 GM/dL (10.7-15.3); LYMPH % 27.5 % (8-40); MCH 28.8 pg (25.7-33.7); MCHC 33.3 g/dl (32.0-36.0); MEAN CELL VOLUME 86.6 fl (80-96); MEAN PLT VOLUME 10.6 fl (7.5-11.1); MONO % 5.6 % (3.8-10.2); NEUT % 66.2 % (42.8-82.8); PLATELET COUNT 108 10^3/uL (134-434); RBC 4.83 M/mm3 (3.60-5.2); RDW 15.3 % (11.6-15.6)
[2023-04-15 05:58] LABS: POTASSIUM 4.3 mmol/L (3.5-5.1)
[2023-04-15 06:00] LABS: BLOOD UREA NITROGEN 8.1 mg/dL (7-18); CALCIUM 8.8 mg/dL (8.5-10.1)
[2023-04-15 06:01] LABS: INR 0.94 (0.83-1.09); PROTHROMBIN TIME (PATIENT) 10.9 SEC (9.7-13.0)
[2023-04-15 06:04] LABS: ACTIVATED PTT 25.4 SECONDS (25.2-36.5); CREATININE 0.4 mg/dL (0.55-1.3)
[2023-04-15] MEDS: METHYLERGONOVINE MALEATE 0.2 MG/1 ML AMP IM PRN (06:26)
[2023-04-15] MEDS ORDERED: ACETAMINOPHEN 325 MG TABLET (FP) ONE (07:42)
[2023-04-15] MEDS: ACETAMINOPHEN 325 MG TABLET (FP) PO PRN (07:50)
[2023-04-15] MEDS: PRENATAL VITAMINS W/ FOLIC ACID TABLET (FP) PO SCH (10:13)
[2023-04-15] MEDS: FERROUS SO4 325 MG TABLET (FP) PO SCH (10:13)
[2023-04-16 08:31] LABS: BASO % 0.2 % (0-2.0); EOS % 1.5 % (0-4.5); HEMATOCRIT 37.5 % (32.4-45.2); HEMOGLOBIN 12.9 GM/dL (10.7-15.3); LYMPH % 30.3 % (8-40); MCH 29.5 pg (25.7-33.7); MCHC 34.4 g/dl (32.0-36.0); MEAN CELL VOLUME 85.5 fl (80-96); MEAN PLT VOLUME 10.4 fl (7.5-11.1); MONO % 5.4 % (3.8-10.2); NEUT % 62.6 % (42.8-82.8); PLATELET COUNT 114 10^3/uL (134-434); RBC 4.38 M/mm3 (3.60-5.2); RDW 15.1 % (11.6-15.6); WHITE BLOOD COUNT 8.2 K/mm3 (4.0-10.0)
[2023-04-16] MEDS: SENNOSIDES/DOCUSATE COMBO (SENNA PLUS) TABLET (UD) PO PRN (21:49)
[2023-04-16 21:54] VITALS: RESP 18
[2023-04-17 08:54] VITALS: BP 102/61; PULSE 71; TEMP 97.9
== END 2023-04-17 13:00 | disposition home or self-care (01) | DRG 560 ==
LOC: JLDR 03:50 → J3W 07:50
PROVIDERS: ADMIT Obstetrics & Gynecology; ATTEND Obstetrics & Gynecology
PROC: 10E0XZZ Delivery of Products of Conception, External Approach (ICD-10-PCS; principal; 2023-04-15)
DX: O62.3 Precipitate labor (principal); Z3A.39 39 weeks gestation of pregnancy; Z37.0 Single live birth
CPT/HCPCS: 36415; 80048; 85025; 85461; 85610; 85730; 86780; 86850; 86900; 86901